=== PATIENT | female | born 1965 | race Caucasian/White ===

== ENCOUNTER 2020-01-09 08:02 | Emergency (ER) | payer OTHER, SELFPAY ==
--- NOTE | ~2020-01-09 | XR_ITS ---
EXAMINATION: XR foot RT min 3V, XR ankle RT min 3V DATE: 01/09/2020 08:27 INDICATION: Diffuse right foot and ankle pain post injury TECHNIQUE: 1. Anteroposterior, mortise, additional oblique and lateral view of the right ankle were obtained. 2. Dorsoplantar, two oblique and lateral views of the right foot were obtained. COMPARISON: None. FINDINGS: Oblique fracture through the distal fibula with fracture plane exiting medially at the level of the t ibiotalar joint. There is minimal displacement. No other fracture identified. Specifically the medi al and posterior malleoli as well as the talar dome are intact. Ankle mortise remains congruent. Nor mal alignment in the foot. 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 Small plantar calcane al spur and small enthesopathic ossicle at the distal Achilles tendon.. Soft tissue swelling overlyin g the lateral malleolus and to a lesser degree over the dorsum of the forefoot. No ankle joint effusi on. IMPRESSION: 1. Minimally displaced oblique fracture of the distal left fibula consistent with a Melendez type B inju ry pattern. Reviewed, dictated and finalized at location A. IMPRESSION: 1. Minimally displaced oblique fracture of the distal left fibula consistent wi th a Melendez type B injury pattern.
[2020-01-09 08:13] VITALS: BP 146/90; PULSE 78; RESP 16; TEMP 36.9; O2SAT 98
--- NOTE | 2020-01-09 08:45 | ED.LOWEXIN ---
HPI - Extremity Injury (Lower) General Chief Complaint: Extremity Injury, Lower Stated Complaint: right ankle pain fell Time Seen by Provider: 01/09/20 08:25 Source: patient and RN notes reviewed Mode of arrival: ambulatory Limitations: no limitations History of Present Illness HPI Narrative: Patient presents today complaining of pain to her right ankle. She missed a step 3 days ago and twisted her ankle at home. Reports some numbness and tingling to toes 1 and 2, but denies any additional numbness or tingling to the leg or foot. Pain increases with movement or weightbearing of the ankle. Currently rates her pain 4/10 at rest. She has been taking ibuprofen with mild relief. States pain is worse at night. She borrowed some crutches and has been using those for ambulation. MD complaint: ankle injury Related Data Home Medications Medication Instructions Recorded Confirmed omeprazole 02/21/19 paroxetine HCl mg PO 02/21/19 Allergies Allergy/AdvReac Type Severity Reaction Status Date / Time No Known Allergies Allergy Unverified 12/08/16 10:09 Review of Systems Review of Systems: Narrative: CONSTITUTIONAL: Denies body aches, fever, chills, or sweats. EYES: Denies visual changes, redness, or discharge. ENT: Denies rhinorrhea, congestion, sore throat, or otalgia. CARDIOVASCULAR: Denies chest pain, palpitations, or edema. RESPIRATORY: Denies cough or dyspnea. GASTROINTESTINAL: Denies abdominal pain, nausea, vomiting, or diarrhea. GENITOURINARY: Denies dysuria or hematuria. SKIN: Denies rash, itching, or wounds. MUSCULOSKELETAL: Denies back pain, or myalgia.+ Right ankle injury NEUROLOGIC: Denies headache, or weakness.+ Numbness and tingling to the right first and second toes PSYCH: Denies depression or anxiety. COUNT INCLUDES THE [facility] Past Medical History Medical History (Updated 01/09/20 @ 08:52 by Nela Robin, [facility], ) GERD (gastroesophageal reflux disease) Family History Family History (Updated 07/17/16 @ 14:27 by DOCTOR UNKNOWN) Father Hypertension Sibling Family history of malignant neoplasm of cervix Other Cerebrovascular accident Diabetes mellitus Family history of malignant neoplasm Social History Social History Smoking status: Former smoker Smoking end date: 03/18/06 Alcohol intake: current Comments At time of signature, I have reviewed and agree with nursing past medical, surgical, social and family history unless otherwise noted. Please see nursing chart for further information. There is no relevant family history pertinent to the presenting complaint Exam Narrative: Exam Narrative: GENERAL: Well-appearing, well-nourished, and in no acute distress. HEAD: Normocephalic, atraumatic. EYES: EOMI. No redness or drainage. Conjunctivae normal. ENT: Mucous membranes pink and moist. NECK: Normal AROM. CHEST: No respiratory distress. EXTREMITIES: Right ankle and foot: Ecchymosis covering most of the dorsum of the right foot extending to the anterior and lateral ankle. Mild edema to the proximal foot and lateral malleolus. Tenderness to the lateral malleolus. No tenderness to the medial malleolus or dorsum of the foot. Distal sensation intact in all toes. Capillary refill normal. Pedal pulse normal. Full range of motion in all toes. Slightly limited range of motion of the ankle due to pain. SKIN: Warm, dry, no rash. Capillary refill normal. Normal skin turgor. NEURO: No focal deficits. Alert and oriented x3. PSYCH: Normal affect. No signs of depression or anxiety. Course Vital Signs Vital signs: Vital Signs Temperature 98.4 F 01/09/20 08:13 Pulse Rate 78 01/09/20 08:13 Respiratory Rate 16 01/09/20 08:13 Blood Pressure 146/90 H 01/09/20 08:13 Pulse Oximetry 98 01/09/20 08:13 Temperature 98.4 F 01/09/20 08:13 Pulse Rate 78 01/09/20 08:13 Respiratory Rate 16 01/09/20 08:13 Blood Pressure 146/90 H 01/09/20 08:13 Pulse Oximetry 98
== END 2020-01-09 09:19 | disposition home or self-care (01) ==
PROVIDERS: Emergency Provider Nurse Practitioner; PCP Registered Nurse
DX: S82.61XA Displaced fracture of lateral malleolus of right fibula, initial encounter for closed fracture (principal); X50.9XXA Other and unspecified overexertion or strenuous movements or postures, initial encounter; K21.9 Gastro-esophageal reflux disease without esophagitis; Z87.891 Personal history of nicotine dependence
CPT/HCPCS: 29515; 73610; 73630; 99214; G0463